=== PATIENT | female | born 1995 | race American Indian/Alaskan Native ===

== ENCOUNTER 2016-06-16 16:00 | Emergency (ER) | payer OTHER ==
[2016-06-16 18:34] LABS: Bilirubin,Urine NEG (Negative); Blood,Urine NEG (Negative); Ketones,Urine NEG (Negative); Leukocyte Esterase,Urine NEG (Negative); Mucus,Urine FEW /HPF; Nitrite,Urine NEG (Negative); Protein,Urine <15 mg/dL mg/dL (Negative); Urobilinogen,Urine < 2.0 mg/dL (<2.0); WBC,Urine < 1.0 /HPF (0.0-6.0)
--- NOTE | 2016-06-16 21:22 | Emergency Department Report ---
<DON DYE - Last Filed: 06/16/16 23:15> ED Female HPI - General Chief complaint: Abdominal Pain Stated complaint: LOWER STOMACH PAIN/NUMBNESS IN LEGS Time Seen by Provider: 06/16/16 21:21 Source: patient Mode of arrival: Ambulatory Limitations: No Limitations - History of Present Illness Initial comments: Patient is a 20-year-old female who presents complaining of low pelvic cramping with some discomfort with urination times one week. Patient also admits vaginal discharge 3 weeks. Patient states hasn't decided on the creamish whitish discharge with a foul odor. Patient denies dysuria, fever, chills, nausea, vomiting, abdominal pain, vaginal bleeding, shortness of breath, dyspareunia ,dizziness or headache. - Related Data Previous Rx's Medication Instructions Recorded Last Taken Type Ibuprofen [Motrin] 800 mg PO Q8HR PRN #30 tablet 06/16/16 Unknown Rx Phenazopyridine [Pyridium] 200 mg PO TID #6 tab 06/17/16 Unknown Rx metroNIDAZOLE [Flagyl] 500 mg PO BID #14 tab 06/17/16 Unknown Rx Allergies Allergy/AdvReac Type Severity Reaction Status Date / Time No Known Allergies Allergy Unverified 06/16/16 16:51 ED Review of Systems ROS: Stated complaint: LOWER STOMACH PAIN/NUMBNESS IN LEGS Other details as noted in HPI Constitutional: denies: chills, fever Eyes: denies: eye pain, eye discharge, vision change ENT: denies: ear pain, throat pain Respiratory: denies: cough, shortness of breath, wheezing Cardiovascular: denies: chest pain, palpitations Endocrine: no symptoms reported Gastrointestinal: denies: abdominal pain, nausea, diarrhea, hematemesis Genitourinary: denies: urgency, dysuria, frequency, discharge Musculoskeletal: denies: back pain, joint swelling, arthralgia Skin: denies: rash, lesions Neurological: denies: headache, weakness, numbness, paresthesias, confusion, abnormal gait Psychiatric: denies: anxiety, depression Hematological/Lymphatic: denies: easy bleeding, easy bruising ED Past Medical Hx - Past Medical History Previous Medical History?: No - Surgical History Additional Surgical History: ectopic - Social History Smoking Status: Current Every Day Smoker Substance Use Type: Alcohol - Medications Home Medications: Home Medications Medication Instructions Recorded Confirmed Last Taken Type Ibuprofen [Motrin] 800 mg PO Q8HR PRN #30 tablet 06/16/16 Unknown Rx Phenazopyridine [Pyridium] 200 mg PO TID #6 tab 06/17/16 Unknown Rx metroNIDAZOLE [Flagyl] 500 mg PO BID #14 tab 06/17/16 Unknown Rx ED Physical Exam - General Limitations: No Limitations General appearance: alert, in no apparent distress - Head Head exam: Present: atraumatic, normocephalic - Eye Eye exam: Present: normal appearance, PERRL, EOMI Pupils: Present: normal accommodation - ENT ENT exam: Present: normal exam, mucous membranes moist - Neck Neck exam: Present: normal inspection, full ROM. Absent: tenderness, meningismus, lymphadenopathy - Respiratory Respiratory exam: Present: normal lung sounds bilaterally. Absent: respiratory distress, wheezes, rales, rhonchi, stridor - Cardiovascular Cardiovascular Exam: Present: regular rate, normal rhythm. Absent: systolic murmur, diastolic murmur, rubs, gallop - GI/Abdominal GI/Abdominal exam: Present: soft, normal bowel sounds. Absent: distended, tenderness, guarding, rebound, rigid - Rectal Rectal exam: Present: normal inspection - External exam: Present: normal external exam. Absent: erythema, swelling, lesions, lacerations, ecchymosis, bleeding Speculum exam: Present: vaginal discharge. Absent: erythema, vaginal bleeding, tissue, laceration Bi-manual exam: Present: adnexal tenderness. Absent: adnexal mass, uterine enlargement, uterine tenderness - Extremities Exam Extremities exam: Present: normal inspection, full ROM. Absent: tenderness, normal capillary refill, pedal edema, joint swelling, calf tenderness - Back Exam Back exam: Present: normal inspection, full ROM. Absent: tenderness, CVA tenderness (R), CVA tenderness (L), muscle spasm, paraspinal tenderness - Neurological Exam Neurological exam: Present: alert, oriented X3, CN II-XII intact, normal gait, reflexes normal. Absent: motor sensory deficit - Psychiatric Psychiatric exam: Present: normal affect, normal mood - Skin Skin exam: Present: warm, dry, intact, normal color. Absent: rash ED Course Vital Signs 06/16/16 06/16/16 16:44 23:34 Temperature 98.8 F Pulse Rate 74 Respiratory 18 20 Rate Blood Pressure 118/69 O2 Sat by Pulse 100 Oximetry ED Medical Decision Making - Medical Decision Making 20-year-old female presents with ED course: Patient received 800 mg Motrin. urinalyses have tests ordered. UPT negative, urinalysis within normal limits. No pyuria and no esterase. Discussed results with patient. Wet prep and gonorrhea and chlamydia tests ordered. Discussed patient will follow-up with [facility] doctor as referred. Critical care attestation.: If time is entered above; I have spent that time in minutes in the direct care of this critically ill patient, excluding procedure time. ED Disposition Clinical Impression: Bacterial vaginosis, Dysuria Disposition: DISCHARGED TO HOME OR SELFCARE Is pt being admited?: No Does the pt Need Aspirin: No Condition: Stable Instructions: Abdominal Pain (ED), Bacterial Vaginosis (ED) Additional Instructions: Follow-up with primary care provider. Return to the emergency department if symptoms worsen. Prescriptions: Ibuprofen [Motrin] 800 mg PO Q8HR PRN #30 tablet PRN Reason: Pain metroNIDAZOLE [Flagyl] 500 mg PO BID #14 tab Phenazopyridine [Pyridium] 200 mg PO TID #6 tab Referrals: [facility] [Outside] - 3-5 Days PRIMARY CARE, [Primary Care Provider] - 3-5 Days MATTHEW OG MD [Staff Physician] - 3-5 Days NIKKIE TORRES MD [Staff Physician] - 3-5 Days YEMI HILL MD [Staff Physician] - 3-5 Days Forms: STI Treatment and Prevention, Work/School Release Form(ED) <KIM RAMOS - Last Filed: 06/17/16 00:11> ED Medical Decision Making - Lab Data Vital Signs 06/16/16 06/16/16 16:44 23:34 Temperature 98.8 F Pulse Rate 74 Respiratory 18 20 Rate Blood Pressure 118/69 O2 Sat by Pulse 100 Oximetry - Medical Decision Making 20-year-old female presents today with lower abdominal pain, dysuria and vaginal discharge. Patient was signed out to me by KELLY Dye. A urine test is negative. Her wet prep reveals clue cells. A referral for [facility] has been provided.Patient is in no acute distress at this time. She will be discharged home and is encouraged to follow up with a primary care provider. She will be sent home on Flagyl and is encouraged to return to the emergency room for any worsening symptoms. ED Disposition Is pt being admited?: No Does the pt Need Aspirin: No Time of Disposition: 00:11
[2016-06-16] MEDS ORDERED: MOTRIN PO ONE (23:18)
[2016-06-17 00:29] VITALS: BP 120/70
== END 2016-06-17 00:36 | disposition home or self-care (01) ==
LOC: ED 16:00
DX: N76.0 Acute vaginitis (principal); R30.0 Dysuria; F17.200 Nicotine dependence, unspecified, uncomplicated
CPT/HCPCS: 81001; 81025; 87210; 87591; 99284

== ENCOUNTER 2016-07-22 08:40 | Emergency (ER) | payer SELFPAY ==
[2016-07-22 09:04] LABS: Basophils % (Auto) 0.9 % (0.0-1.8); Eosinophils % (Auto) 0.3 % (0.0-4.3); Hematocrit 39.9 % (30.3-42.9); Hemoglobin 12.8 gm/dl (10.1-14.3); Mean Corpuscular HGB Conc 32 % (30-34); Mean Corpuscular Hemoglobin 28 pg (28-32); Mean Corpuscular Volume 86 fl (79-97); Platelet Count 299 K/mm3 (140-440); Red Blood Count 4.66 M/mm3 (3.65-5.03); Red Cell Distribution Width 14.5 % (13.2-15.2); White Blood Count 6.9 K/mm3 (4.5-11.0)
[2016-07-22 13:24] LABS: Bacteria,Urine 1+ /HPF (Negative); Bilirubin,Urine NEG (Negative); Blood,Urine SM (Negative); Ketones,Urine NEG (Negative); Leukocyte Esterase,Urine NEG (Negative); Mucus,Urine 1+ /HPF; Nitrite,Urine NEG (Negative); Protein,Urine <15 mg/dL mg/dL (Negative); Urobilinogen,Urine < 2.0 mg/dL (<2.0)
[2016-07-22 14:44] VITALS: BP 139/84
[2016-07-22] MEDS ORDERED: NACL 0.9% 1000 ML 1,000 ML IV ONE (16:50)
--- NOTE | 2016-07-22 16:50 | Emergency Department Report ---
ED Dizziness HPI - General Chief Complaint: Dizziness Stated Complaint: DIZZINESS/VAG BLEEDING Time Seen by Provider: 07/22/16 16:15 Source: patient, old records reviewed (Pt was here June 24 for vaginal discharge. Wet prep positive for clue cells and negative for Trichomonas, yeast , gonorrhea, and chlamydia) Mode of arrival: Ambulatory Limitations: No Limitations - History of Present Illness Initial Comments: 21-year-old female with a past medical history of ovarian cyst and previous ectopic presents to the hospital complaints of vaginal spotting and dizziness. Patient states she finished her menstral cycle on July 18. 2 days later she developed vaginal spotting that does not require a pad or tampon. Patient complains of abdominal pressure but no pain. Patient states that this morning she has felt lightheaded. The only thing she had to eat today were fruit snacks. No reports of nausea, vomiting, dysuria, or fever. - Related Data Previous Rx's Medication Instructions Recorded Last Taken Type Ibuprofen [Motrin] 800 mg PO Q8HR PRN #30 tablet 06/16/16 Unknown Rx Phenazopyridine [Pyridium] 200 mg PO TID #6 tab 06/17/16 Unknown Rx metroNIDAZOLE [Flagyl] 500 mg PO BID #14 tab 06/17/16 Unknown Rx Allergies Allergy/AdvReac Type Severity Reaction Status Date / Time No Known Allergies Allergy Unverified 06/16/16 16:51 ED Review of Systems ROS: Stated complaint: DIZZINESS/VAG BLEEDING Other details as noted in HPI Comment: All other systems reviewed and negative Other: Constitutional: No fevers chills or weight loss Eyes: No eye pain visual changes or discharge ENT: No ear pain or throat pain Neck: Denies pain Respiratory: Denies cough wheezing shortness of breath Cardiovascular: Denies chest pain, palpitations GI: Denies nausea, vomiting, diarrhea : Denies dysuria Musculoskeletal: Denies back pain Skin: Denies rash, lesions, erythema Neurologic: Denies headache, numbness, weakness Psychiatric: Denies suicidal ideation, hallucinations ED Past Medical Hx - Past Medical History Previous Medical History?: Yes Additional medical history: Ovarian cyst - Surgical History Past Surgical History?: Yes Additional Surgical History: ectopic - Social History Smoking Status: Current Every Day Smoker Substance Use Type: Alcohol, Marijuana - Medications Home Medications: Home Medications Medication Instructions Recorded Confirmed Last Taken Type Ibuprofen [Motrin] 800 mg PO Q8HR PRN #30 tablet 06/16/16 Unknown Rx Phenazopyridine [Pyridium] 200 mg PO TID #6 tab 06/17/16 Unknown Rx metroNIDAZOLE [Flagyl] 500 mg PO BID #14 tab 06/17/16 Unknown Rx ED Physical Exam - General Limitations: No Limitations ED Course Vital Signs 07/22/16 07/22/16 08:44 14:43 Temperature 97.9 F 98.5 F Pulse Rate 93 H 62 Respiratory 18 18 Rate Blood Pressure 143/99 Blood Pressure 139/84 [Right] O2 Sat by Pulse 100 100 Oximetry ED Medical Decision Making - Lab Data Result diagrams: 07/22/16 08:51 07/22/16 17:07 Lab Results 07/22/16 07/22/16 07/22/16 Range/Units 08:51 12:24 16:46 WBC 6.9 (4.5-11.0) K/mm3 RBC 4.66 (3.65-5.03) M/mm3 Hgb 12.8 (10.1-14.3) gm/dl Hct 39.9 (30.3-42.9) % MCV 86 (79-97) fl MCH 28 (28-32) pg MCHC 32 (30-34) % RDW 14.5 (13.2-15.2) % Plt Count 299 (140-440) K/mm3 Lymph % (Auto) 42.3 H (13.4-35.0) % [place] % (Auto) 8.2 H (0.0-7.3) % Eos % (Auto) 0.3 (0.0-4.3) % Baso % (Auto) 0.9 (0.0-1.8) % Lymph # 2.9 (1.2-5.4) K/mm3 [place] # 0.6 (0.0-0.8) K/mm3 Eos # 0.0 (0.0-0.4) K/mm3 Baso # 0.1 (0.0-0.1) K/mm3 Seg Neutrophils % 48.3 (40.0-70.0) % Seg Neutrophils # 3.3 (1.8-7.7) K/mm3 Sodium (137-145) mmol/L Potassium (3.6-5.0) mmol/L Chloride (98-107) mmol/L Carbon Dioxide (22-30) mmol/L Anion Gap mmol/L BUN (7-17) mg/dL Creatinine (0.7-1.2) mg/dL Estimated GFR ml/min BUN/Creatinine Ratio % Glucose (65-100) mg/dL POC Glucose 80 (70-105) Calcium (8.4-10.2) mg/dL Magnesium (1.7-2.3) mg/dL Urine Color Yellow (Yellow) Urine Turbidity Clear (Clear) Urine pH 5.0 (5.0-7.0) Ur Specific [place] 1.024 (1.003-1.030) Urine Protein <15 mg/dl (Negative) mg/dL Urine Glucose (UA) Neg (Negative) mg/dL Urine Ketones Neg (Negative) mg/dL Urine Blood Sm (Negative) Urine Nitrite Neg (Negative) Ur Reducing Substances Not Reportable Urine Bilirubin Neg (Negative) Urine Ictotest Not Reportable Urine Urobilinogen < 2.0 (<2.0) mg/dL Ur Leukocyte Esterase Neg (Negative) Urine WBC (Auto) 2.0 (0.0-6.0) /HPF Urine RBC (Auto) 2.0 (0.0-6.0) /HPF U Epithel Cells (Auto) 12.0 (0-13.0) /HPF Urine Bacteria (Auto) 1+ (Negative) /HPF Urine Mucus 1+ /HPF Urine HCG, Qual Negative (Negative) 07/22/16 Range/Units 17:07 WBC (4.5-11.0) K/mm3 RBC (3.65-5.03) M/mm3 Hgb (10.1-14.3) gm/dl Hct (30.3-42.9) % MCV (79-97) fl MCH (28-32) pg MCHC (30-34) % RDW (13.2-15.2) % Plt Count (140-440) K/mm3 Lymph % (Auto) (13.4-35.0) % [place] % (Auto) (0.0-7.3) % Eos % (Auto) (0.0-4.3) % Baso % (Auto) (0.0-1.8) % Lymph # (1.2-5.4) K/mm3 [place] # (0.0-0.8) K/mm3 Eos # (0.0-0.4) K/mm3 Baso # (0.0-0.1) K/mm3 Seg Neutrophils % (40.0-70.0) % Seg Neutrophils # (1.8-7.7) K/mm3 Sodium 138 (137-145) mmol/L Potassium 3.6 (3.6-5.0) mmol/L Chloride 101.7 (98-107) mmol/L Carbon Dioxide 23 (22-30) mmol/L Anion Gap 17 mmol/L BUN 7 (7-17) mg/dL Creatinine 0.5 L (0.7-1.2) mg/dL Estimated GFR > 60 ml/min BUN/Creatinine Ratio 14.00 % Glucose 85 (65-100) mg/dL POC Glucose (70-105) Calcium 8.7 (8.4-10.2) mg/dL Magnesium 1.7 (1.7-2.3) mg/dL Urine Color (Yellow) Urine Turbidity (Clear) Urine pH (5.0-7.0) Ur Specific [place] (1.003-1.030) Urine Protein (Negative) mg/dL Urine Glucose (UA) (Negative) mg/dL Urine Ketones (Negative) mg/dL Urine Blood (Negative) Urine Nitrite (Negative) Ur Reducing Substances Urine Bilirubin (Negative) Urine Ictotest Urine Urobilinogen (<2.0) mg/dL Ur Leukocyte Esterase (Negative) Urine WBC (Auto) (0.0-6.0) /HPF Urine RBC (Auto) (0.0-6.0) /HPF U Epithel Cells (Auto) (0-13.0) /HPF Urine Bacteria (Auto) (Negative) /HPF Urine Mucus /HPF Urine HCG, Qual (Negative) - Medical Decision Making Orthostatics were performed and were negative however, patient dependent dizziness with standing there for 1 L normal saline was given. Patient insists that is a lightheaded feeling and not a spinning sensation however, patient has normal blood work and negative orthostatic therefore meclizine 25 mg also provided. Despite all this treatment the ED patient still complains of feeling dizziness. However, patient has stable gait and normal vital signs. She discharged at this time with outpatient follow-up. Patient was provided food but ate very little because she does not eat Beef. She just ate a couple pieces of bread and has some juice - Differential Diagnosis anemia, infection, dehdyration, pregnany, uti Critical Care Time: No Critical care attestation.: If time is entered above; I have spent that time in minutes in the direct care of this critically ill patient, excluding procedure time. ED Disposition Clinical Impression: Lightheaded, Vaginal spotting Disposition: DISCHARGED TO HOME OR SELFCARE Is pt being admited?: No Does the pt Need Aspirin: No Condition: Stable Instructions: Lightheadedness (ED), Dysfunctional Uterine Bleeding (ED) Additional Instructions: Continue to drink plenty of fluids and follow up with the doctor provided. Return if symptoms worsen. Referrals: KALI PRABHAKAR MD [Staff Physician] - 3-5 Days BONG TEMPLE MD [Staff Physician] - 3-5 Days Time of Disposition: 19:43
[2016-07-22 17:41] LABS: Anion Gap 17 mmol/L; Blood Urea Nitrogen 7 mg/dL (7-17); Calcium 8.7 mg/dL (8.4-10.2); Carbon Dioxide 23 mmol/L (22-30); Chloride 101.7 mmol/L (98-107); Glucose 85 mg/dL (65-100); Magnesium 1.7 mg/dL (1.7-2.3); Potassium 3.6 mmol/L (3.6-5.0); Sodium 138 mmol/L (137-145)
[2016-07-22] MEDS ORDERED: ANTIVERT PO ONE (18:26)
== END 2016-07-22 19:50 | disposition home or self-care (01) ==
LOC: ED 08:40
DX: N93.9 Abnormal uterine and vaginal bleeding, unspecified (principal); R42 Dizziness and giddiness; F17.200 Nicotine dependence, unspecified, uncomplicated; F12.90 Cannabis use, unspecified, uncomplicated
CPT/HCPCS: 36415; 80048; 81001; 81025; 82962; 83735; 85025; 93005; 93010; 96360; 96361; 99284; J7030